=== PATIENT | male | born 1945 | race Caucasian/White ===

== ENCOUNTER 2023-08-08 07:45 | Day surgery (SDC) | payer OTHER ==
[2023-08-08] VITALS (11 sets, daily range): BP systolic 114–169; BP diastolic 66–93; PULSE 70–84; RESP 15–20
[~2023-08-08] VITALS: Ht 170.2 cm; Wt 68.0 kg
[~2023-08-08 07:45] MED LIST: IRBE150T34 PO; METO25TA3 PO; ROSU20TA23 PO
[2023-08-08] MEDS: 0.9%NACL 1000ML 1,000 ML IV ONE (10:24)
[2023-08-08] MEDS ORDERED: PROPOFOL 10 MG/ML 20ML VIAL IV ONE (12:57)
== END 2023-08-08 14:10 | disposition home or self-care (01) ==
LOC: ENDO 07:45 → DAH 07:45 → ENDO 14:10
PROVIDERS: ATTEND Internal Medicine Gastroenterology
DX: Z12.11 Encounter for screening for malignant neoplasm of colon (principal); K57.30 Diverticulosis of large intestine without perforation or abscess without bleeding; I10 Essential (primary) hypertension; Z86.010 Personal history of colon polyps; Z88.0 Allergy status to penicillin; Z79.899 Other long term (current) drug therapy
CPT/HCPCS: 45378; J7030 ×2; J2704; A4620; A4215; A4223; A7002; A4222; A4221; A4663; A4606; G0105; J3490